=== PATIENT | female | born 1985 | race Two or more races ===

== ENCOUNTER 2021-11-06 21:00 | Emergency (ER) | payer MEDICAID ==
[~2021-11-06] VITALS: Ht 162.6 cm; Wt 81.6 kg
[2021-11-06] MEDS ORDERED: LISINOPRIL 5 MG TAB PO ONE (21:45)
[2021-11-06] MEDS ORDERED: amLODIPine BESYLATE 5 MG TAB PO ONE (21:45)
[2021-11-06 22:11] LABS: Basophils # (auto) 0.1 10 ^3/uL (0-0.2); Basophils % (auto) 0.8 % (0.0-2.0); Eosinophils # (auto) 0.2 10 ^3/uL (0-0.8); Eosinophils % (auto) 1.9 % (0.0-7.0); Hematocrit 35.8 % (36.0-46.0); Hemoglobin 12.8 g/dL (12.2-16.2); Lymphocytes % (auto) 21.3 % (10.0-50.0); Mean Corpuscular Hemoglobin 30.6 pg (28.0-32.0); Mean Corpuscular Hgb Conc. 35.8 g/dL (32.0-36.0); Mean Corpuscular Volume 85.5 fL (80.0-100.0); Monocytes # (auto) 0.9 10 ^3/uL (0-1.3); Monocytes % (auto) 9.7 % (0.0-12.0); Neutrophils # (auto) 6.3 10 ^3/uL (1.6-8.6); Neutrophils % (auto) 66.3 % (37.0-80.0); Nucleated Red Blood Cells % 0.1 %; Red Blood Cells 4.19 10^6/uL (4.0-5.20); Red Cell Distribution Width 13.9 % (11.8-14.3); White Blood Cell 9.5 10^3/uL (4.4-10.8)
[2021-11-06 22:23] LABS: Albumin 3.9 g/dL (3.4-5.0); Calcium 8.9 mg/dL (8.5-10.1)
[2021-11-06 22:29] LABS: BUN/Creatinine Ratio 16.7; Bilirubin, Total 0.4 mg/dL (0.2-1.0); Total Protein 7.5 g/dL (6.4-8.2)
[2021-11-06 23:42] LABS: Urine Bacteria NONE SEEN /hpf (None Seen); Urine Blood Negative /uL (Negative); Urine Specific Gravity 1.007 (1.001-1.035); Urine WBC 2 /hpf (0 - 5)
[2021-11-06] MEDS ORDERED: KETOROLAC TROMETH 30 MG/ML 1ML VIAL IV ONE (23:45)
[2021-11-06] MEDS ORDERED: LORazepam 2MG/ML-1ML VIAL IV ONE (23:45)
[2021-11-07] MEDS ORDERED: AMLO-489 PO (04:50)
[2021-11-07] MEDS ORDERED: LISI-716 PO (04:50)
[2021-11-07 05:00] VITALS: BP 139/85
== END 2021-11-07 05:53 | disposition home or self-care (01) ==
LOC: ER 21:00
DX: R00.2 Palpitations (principal); M79.10 Myalgia, unspecified site; R51.9 Headache, unspecified; R06.02 Shortness of breath; I10 Essential (primary) hypertension
CPT/HCPCS: 36415; 70450; 71045; 80053; 81001; 81025; 83880; 84484; 84702; 85025; 93005; 96374; 96375; 99285; J1885; J2060

== ENCOUNTER 2022-04-23 21:41 | Emergency (ER) | payer SELFPAY ==
[~2022-04-23] VITALS: Ht 162.6 cm; Wt 90.0 kg
[2022-04-23 21:41] VITALS: BP 209/93
[~2022-04-23 21:41] MED LIST: AMLO-489 PO; LISI-716 PO
== END 2022-04-24 04:44 | disposition left against medical advice (07) ==
LOC: ER 21:41
DX: I10 Essential (primary) hypertension (principal); Z53.21 Procedure and treatment not carried out due to patient leaving prior to being seen by health care provider; R42 Dizziness and giddiness

== ENCOUNTER 2022-05-05 19:50 | Emergency (ER) | payer MEDICAID ==
[~2022-05-05] VITALS: Ht 162.6 cm; Wt 81.5 kg
[2022-05-05 22:09] LABS: Basophils # (auto) 0.1 10 ^3/uL (0-0.2); Basophils % (auto) 0.5 % (0.0-2.0); Eosinophils # (auto) 0.2 10 ^3/uL (0-0.8); Eosinophils % (auto) 1.6 % (0.0-7.0); Hematocrit 38.1 % (36.0-46.0); Lymphocytes # (auto) 2.6 10 ^3/uL (0.4-5.4); Lymphocytes % (auto) 24.1 % (10.0-50.0); Mean Corpuscular Hemoglobin 29.4 pg (28.0-32.0); Mean Corpuscular Hgb Conc. 34.3 g/dL (32.0-36.0); Mean Corpuscular Volume 85.9 fL (80.0-100.0); Monocytes # (auto) 1.1 10 ^3/uL (0-1.3); Monocytes % (auto) 9.7 % (0.0-12.0); Neutrophils # (auto) 6.9 10 ^3/uL (1.6-8.6); Neutrophils % (auto) 64.1 % (37.0-80.0); Red Blood Cells 4.43 10^6/uL (4.0-5.20); Red Cell Distribution Width 13.9 % (11.8-14.3); White Blood Cell 10.8 10^3/uL (4.4-10.8)
[2022-05-05 22:20] LABS: Albumin 3.6 g/dL (3.4-5.0); Calcium 9.4 mg/dL (8.5-10.1); Magnesium 2.1 mg/dL (1.6-2.6); Potassium 3.4 mmol/L (3.5-5.1)
[2022-05-05 22:23] LABS: BUN/Creatinine Ratio 21.9; Bilirubin, Total 0.4 mg/dL (0.2-1.0); Total Protein 7.4 g/dL (6.4-8.2)
[2022-05-05 22:48] LABS: Urine Bacteria FEW /hpf (None Seen); Urine Blood Negative /uL (Negative); Urine Specific Gravity 1.017 (1.001-1.035); Urine WBC 9 /hpf (0 - 5)
[2022-05-05 22:57] LABS: INR 0.94 (0.9-1.15); Partial Thromboplastin Time 27.1 sec (24.6-33.4)
[2022-05-05] MEDS ORDERED: POTASSIUM EFFERVESENT TAB 25 MEQ PO ONE (23:00)
[2022-05-05] MEDS: LABETALOL HCL 200 MG TAB PO ONE (23:45)
[2022-05-06] MEDS: LABETALOL HCL 200 MG TAB PO ONE (02:14)
[2022-05-06] MEDS ORDERED: CEPH-322 PO (02:25)
[2022-05-06] MEDS ORDERED: LABE200T7 PO (03:08)
[2022-05-06 04:00] VITALS: BP 150/91
== END 2022-05-06 04:09 | disposition home or self-care (01) ==
LOC: ER 19:50
DX: O26.891 Other specified pregnancy related conditions, first trimester (principal); O16.1 Unspecified maternal hypertension, first trimester; O23.41 Unspecified infection of urinary tract in pregnancy, first trimester; I77.89 Other specified disorders of arteries and arterioles; Z3A.01 Less than 8 weeks gestation of pregnancy; Z88.0 Allergy status to penicillin
CPT/HCPCS: 36415; 71045; 76801; 80053; 81001; 81025; 83735; 83880; 84484; 84702; 85025; 85379; 85610; 85730; 93005